=== PATIENT | male | born 1955 | race Caucasian/White ===

== ENCOUNTER 2019-12-08 11:59 | Day surgery (SDC) | payer OTHER ==
[~2019-12-08] VITALS: Ht 180.3 cm; Wt 81.6 kg
[~2019-12-08 11:59] MED LIST: ATEN-60 PO; ATOR20TA50 PO; FINA5TAB4 PO; SULF400T11 PO
[2019-12-08] MEDS ORDERED: ceFAZolin 1GM/50ML 50 ML IV ONE (12:09)
[2019-12-08] MEDS ORDERED: MIDAZOLAM HCL 1MG/1ML-2 ML VIAL ONE (13:46)
[2019-12-08] MEDS ORDERED: fentaNYL CITRATE 100 MCG/2 ML VL ONE (13:46)
[2019-12-08] MEDS ORDERED: DexAMETHasone SOD PHOS 10MG/1ML VIAL INJ ONE (13:48)
[2019-12-08] MEDS ORDERED: PROPOFOL 10 MG/ML 20 ML IV ONE (14:17)
[2019-12-08] MEDS ORDERED: ePHEDrine SULFATE 50 MG/ML AMP IV PRN (14:45)
[2019-12-08] MEDS ORDERED: HYDROmorphone HCL 2 MG/ML VL IV PRN (14:45)
[2019-12-08] MEDS ORDERED: LABETALOL HCL 5 MG/ML 4ML SYRINGE IV PRN (14:45)
[2019-12-08] MEDS ORDERED: MORPHINE SULF INJ 2 MG/ML SYRINGE 1ML IV PRN (14:45)
[2019-12-08] MEDS ORDERED: MIDAZOLAM HCL 1MG/1ML-2 ML VIAL IV PRN (14:45)
[2019-12-08] MEDS ORDERED: ONDANSETRON HCL 4 MG/2 ML VIAL IV PRN (14:45)
[2019-12-08 14:59] VITALS: BP 133/70
== END 2019-12-08 15:25 | disposition home or self-care (01) ==
LOC: SUR 11:59
PROVIDERS: ATTEND Urology
DX: N13.1 Hydronephrosis with ureteral stricture, not elsewhere classified (principal); J44.9 Chronic obstructive pulmonary disease, unspecified; I12.9 Hypertensive chronic kidney disease with stage 1 through stage 4 chronic kidney disease, or unspecified chronic kidney disease; N18.9 Chronic kidney disease, unspecified; Z98.890 Other specified postprocedural states; Z79.899 Other long term (current) drug therapy; Z11.59 Encounter for screening for other viral diseases
CPT/HCPCS: 52005; 74018; 74420; 88300; C1769; J0690; J1100; J2250; J2704; J3010; J7030; U0003; 76000

== ENCOUNTER 2021-12-18 11:22 | Emergency (ER) | payer OTHER ==
[~2021-12-18] VITALS: Ht 177.8 cm; Wt 86.2 kg
[2021-12-18 12:07] VITALS: BP 157/86
[2021-12-18 12:13] LABS: Urine Bacteria MOD /hpf (None Seen); Urine Blood 3+ /uL (Negative); Urine Specific Gravity 1.018 (1.001-1.035); Urine WBC 442 /hpf (0 - 3)
[2021-12-18] MEDS ORDERED: levoFLOXacin 500 MG TAB PO ONE (12:30)
[2021-12-18] MEDS ORDERED: LEVO500T31 PO (13:25)
== END 2021-12-18 13:56 | disposition home or self-care (01) ==
LOC: ER 11:22
DX: N39.0 Urinary tract infection, site not specified (principal); F17.210 Nicotine dependence, cigarettes, uncomplicated; Z79.899 Other long term (current) drug therapy
CPT/HCPCS: 81001